=== PATIENT | male | born 1995 | race Caucasian/White ===

== ENCOUNTER 2020-07-12 14:33 | Emergency (ER) | payer MEDICAID, SELFPAY ==
[2020-07-12 14:34] VITALS: BP 140/93; PULSE 95; RESP 18; TEMP 37; O2SAT 98; BMI 33.4
[2020-07-12 14:41] VITALS: BP 154/95; PULSE 85; O2SAT 99
[2020-07-12 15:00] LABS: Hematocrit 48.9 % (42.0-52.0); Hemoglobin 15.6 g/dL (14.1-18.0); Mean Corpuscular Hemoglobin 26.5 pg (27.0-31.2); Mean Corpuscular Volume 82.9 fl (80-94); White Blood Count 8.7 K/mm3 (4.8-10.8)
[2020-07-12 15:01] LABS: Basophils % 0.5 % (0.1-2.0); Eosinophils # 0.1 K/mm3 (0.0-0.4); Eosinophils % 1.4 % (0.1-12.0); Lymphocytes # 1.8 K/mm3 (0.7-4.5); Lymphocytes % 20.1 % (10-50); Mean Platelet Volume 7.6 fl (7.4-10.4); Monocytes # 0.5 K/mm3 (0.1-1.0); Monocytes % 5.2 % (1.7-9.3); Neutrophils # 6.4 K/mm3 (1.8-7.8); Neutrophils % 72.8 % (37.0-80.0); Platelet Count 281 K/mm3 (142-424); Red Cell Distribution Width 14.1 % (11.5-17.5)
[2020-07-12 15:02] LABS: Anion Gap 13.1 mEq/L (5-15); Blood Urea Nitrogen 11 mg/dl (9-20); Calcium 9.5 mg/dl (8.4-10.2); Carbon Dioxide 28 mmol/L (22.0-30.0); Chloride 105 mmol/L (98-107); Creatinine Clearance Estimated 144 mL/min (50-200); Estimated Glomerular Filt Rate 81 ml/min (>60); GFR (African American) 98 ML/MIN (>60); Glucose 112 mg/dl (74-100); Potassium 4.1 mmoL/L (3.5-5.1); Sodium 142 mmol/L (136-145); Troponin I < 0.01 ng/ml (0.00-0.034)
--- NOTE | 2020-07-12 15:06 | [facility].EDDIZZ ---
ED Disposition Clinical Impression: BPV (benign positional vertigo) Qualifiers: Laterality: unspecified laterality Qualified Code(s): H81.10 - Benign paroxysmal vertigo, unspecified ear Disposition: Home, Self-Care Condition on Discharge: Good Instructions: Vertigo Prescriptions: Meclizine HCl 25 mg PO BID #20 tab Prescription Printed Referrals: PCP,No [Primary Care Provider] - Holden Hartman MD [Staff Physician] - Time of Disposition: 15:25 - Critical Care Critical Care Time: No Attestation: On 07/12/20, the high probability of a clinically significant, sudden or life threatening deterioration of the following system(s) required my full and direct attention, intervention and personal management. The time I documented below is in addition to time spent performing reported procedures but includes the following listed in this critical care notation. Medical Decision Making - Medical Records Medical records reviewed: Yes: I reviewed the patient's medical records. - Harry Inquiry Pt receiving controlled substance: No Vital Signs: 07/12/20 14:34 07/12/20 14:41 Temperature 98.6 F Temperature Source Oral Pulse Rate [Right Radial] 95 H 85 Respiratory Rate 18 Blood Pressure [Left Arm] 140/93 H 154/95 H Blood Pressure Mean [Left Arm] 108 114 Blood Pressure Source [Left Arm] Automatic Cuff Blood Pressure Position [Left Arm] Sitting Sitting 02 Sat by Pulse Oximetry 98 99 Oxygen Delivery Method Room Air Room Air - Lab Data Lab Results 07/12/20 14:27: WBC 8.7, RBC 5.90, Hgb 15.6, Hct 48.9, MCV 82.9, MCH 26.5 L, MCHC 32.0, RDW 14.1, Plt Count 281, MPV 7.6, Neut % (Auto) 72.8, Lymph % (Auto) 20.1, [place] % (Auto) 5.2, Eos % (Auto) 1.4, Baso % (Auto) 0.5, Neut # (Auto) 6.4, Lymph # (Auto) 1.8, [place] # (Auto) 0.5, Eos # (Auto) 0.1, Baso # (Auto) 0.0 07/12/20 14:27: Sodium 142, Potassium 4.1, Chloride 105, Carbon Dioxide 28, Anion Gap 13.1, BUN 11, Creatinine 1.10, Estimated Creat Clear 144, Estimated GFR 81, Est GFR ( Amer) 98, Glucose 112 H, Calcium 9.5, Troponin I < 0.01 Result diagrams: 07/12/20 14:27 07/12/20 14:27 Orders (Tests/Meds): ED MEDICATIONS Generic Name Dose Route Start Last Admin Trade Name Freq PRN Reason Stop Dose Admin Sodium Chloride 1,000 mls @ 999 mls/hr 07/12/20 15:00 07/12/20 15:03 Sod Chlor 0.9% 1000ml Bag IV 07/12/20 16:00 999 mls/hr .Q1H1M PHUONG Administration Discontinued Medications Generic Name Dose Route Start Last Admin Trade Name Freq PRN Reason Stop Dose Admin Promethazine HCl 25 mg 07/12/20 14:51 07/12/20 15:02 Promethazine Hcl 25mg/Ml 1ml Vial IV 07/12/20 14:52 25 mg ONCE ONE Administration Sodium Chloride 25 ml 07/12/20 14:51 07/12/20 15:03 Sodium Chloride 0.9% 25ml Bag IV 07/12/20 14:52 25 ml ONCE ONE Administration ORDERS Category Date Time Status Troponin I Q3H Lab 07/12/20 18:00 Ordered Troponin I Q3H Lab 07/12/20 21:00 Ordered EKG Request [ECG Request by /Gopal] Stat Y 07/12/20 14:50 Ordered - ECG Data Tracing #1 EKG shows a normal ventricular rate 81 bpm, normal OH interval, normal QTC. Sinus rhythm with no ST changes ECG initial impression date: 07/12/20 ECG initial impression time: 15:05 - Reevaluation(s) Time: 15:23 Reevaluation #1: On reevaluation, patient is feeling much better. Dizziness is improved. Troponin negative. Patient is ambulatory. Repeat neuro exam is normal. Patient will follow up with ENT. Given strict return precautions. Verbalized understanding. Medical Decision Narrative: 24-year-old male presenting to the emergency department dizziness. Appears to be chronic. Consistent with benign positional vertigo. Work-up initiated. Dizzy HPI - General Chief Complaint: Dizziness Stated Complaint: dizzyness Time Seen by Provider: 07/12/20 14:40 Mode of Arrival: Ambulatory Limitations: No Limitations Description of Symptoms (Recalled from ER Triage Doc. by
[2020-07-12 15:28] VITALS: BP 140/90; PULSE 77; O2SAT 97
[2020-07-12 15:39] VITALS: BP 140/95; PULSE 87; RESP 17; TEMP 36.7; O2SAT 99
== END 2020-07-12 15:39 | disposition home or self-care (01) ==
PROVIDERS: Emergency Provider Emergency Medicine
DX: H81.10 Benign paroxysmal vertigo, unspecified ear (principal)
CPT/HCPCS: 80048; 84484; 85025; 96365; 96375; 99282